=== PATIENT | male | born 1950 | race Caucasian/White ===

== ENCOUNTER 2016-06-09 21:08 | Emergency (ER) | payer OTHER ==
[2016-06-09 21:19] VITALS: TEMP 98.2
[2016-06-09] MEDS ORDERED: ONDANSETRON 4 MG/2 ML VIAL IVP ONE (21:44)
[2016-06-09] MEDS ORDERED: HYDROmorphONE/DILAUDID 1 MG/ML SYR IVP ONE ×2 (21:44→22:43)
[2016-06-09] MEDS ORDERED: NS 1,000 ML IV ONE (21:44)
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
[2016-06-09 22:14] LABS: ANION GAP 10 mEq/L (8-16); CALCIUM 9.6 mg/dL (8.5-10.4); CARBON DIOXIDE 23 mEq/l (22-31); CHLORIDE 102 mEq/L (97-110); CREATININE 1.2 mg/dL (0.7-1.3); GLOMERULAR FILTRATION RATE > 60; GLUCOSE 115 mg/dL (70-100); POTASSIUM 3.8 mEq/L (3.5-5.2); SODIUM 135 mEq/L (134-144)
[2016-06-09 22:16] LABS: % IMMATURE GRANULYOCYTES 0.4 % (0.0-1.1); ABSOLUTE IMMATURE GRANULOCYTES 0.03 10^3/uL (0.00-0.10); ADD DIFF? NO; ADD MORPH? NO; ADD SCAN? NO; ATYPICAL LYMPHOCYTE FLAG 10 (0-99); FRAGMENT RBC FLAG 0 (0-99); HEMATOCRIT 45.6 % (40.0-51.0); HEMOGLOBIN 16.5 g/dL (13.7-17.5); LEFT SHIFT FLG 0 (0-99); LIPEMIA HEMOLYSIS FLAG 90 (0-99); MEAN CELL HEMOGLOBIN 33.1 pg (27.9-34.1); MEAN CELL HEMOGLOBIN CONCENTR. 36.2 g/dL (32.4-36.7); MEAN CELL VOLUME 91.6 fL (81.5-99.8); MEAN PLATELET VOLUME 9.7 fL (8.7-11.7); PLATELET CLUMPS FLAG 0 (0-99); PLATELET COUNT 262 10^3/uL (150-400); RED BLOOD CELL COUNT 4.98 10^6/uL (4.40-6.38); RED CELL DISTRIBUTION WIDTH 12.6 % (11.5-15.2)
[2016-06-09] MEDS ORDERED: KETOROLAC 15 MG/1 ML SDV IVP ONE (22:16)
[2016-06-09] MEDS ORDERED: OXYCODONE/APAP 5/325MG PREPACK#4 BTL TAKEHOME ONE (22:49)
[2016-06-09 23:15] VITALS: BP 136/88; PULSE 83; RESP 16; O2SAT 92
== END 2016-06-09 23:12 | disposition home or self-care (01) ==
DX: N20.0 Calculus of kidney (principal)
CPT/HCPCS: 74176; 96361; 96374; 96375; 99285; J1170; J1885; J2405

== ENCOUNTER 2016-06-13 16:53 | Observation (INO) | payer OTHER ==
[2016-06-13] MEDS ORDERED: ACETAMINOPHEN 500 MG TAB ONE (18:06)
--- NOTE | 2016-06-13 18:20 | EDPHY ---
H & P Stated Complaint: Had kidney stone;here last Sun;now has fever and doesn't feel good Source: Patient Exam Limitations: No limitations - Personal History Current Tetanus Diphtheria and Acellular Pertussis (TDAP): Yes - Medical/Surgical History Hx Asthma: No Hx Chronic Respiratory Disease: No Hx Diabetes: No Hx Cardiac Disease: No Hx Renal Disease: No Hx Cirrhosis: No Hx Alcoholism: No Hx HIV/AIDS: No Hx Splenectomy or Spleen Trauma: No Other PMH: bilat wrist repair. kidney stones (recent). gout - Social History Smoking Status: Never smoked Time Seen by Provider: 06/13/16 18:03 HPI/ROS: CHIEF COMPLAINT: Fever, body aches HISTORY OF PRESENT ILLNESS: 66-year-old male presents emergency department complaining of a 3 day history of fevers, body aches, decreased appetite. Patient reports nausea and 1 episode of emesis today. Patient was seen in the emergency department 5 days ago for left flank pain. He had a CT scan that showed a left ureteral calculi as well as a left renal calculi nonobstructing. Patient was discharged home with pain medication, he strained his urine and took the stone to his primary care doctor on Friday, this stone is currently in the lab being analyzed. Patient states on Friday he developed the same exact pain in his abdomen and flank that he had with the previous stone. He assumed this was the other stone that dropped from his kidney. This pain lasted overnight and has resolved. The patient denies abdominal pain, flank pain. He denies urinary frequency, urgency or dysuria. He denies chest pain or shortness of breath, no cough, no sore throat, no ear pain. REVIEW OF SYSTEMS: A comprehensive 10 point review of systems is otherwise negative aside from elements mentioned in the history of present illness. (Aundrea Guardado) - Physical Exam Exam: Physical Exam Gen: Alert and Oriented, NAD HEENT: PERRL, dry mucous membranes NECK: no meningismus CV: Tachycardic rate and regular rhythm PULM: CTAB, no wheezes ABDOMEN: soft, non tender to palpation, BS present BACK: No CVA tenderness NEURO: Neurologically grossly intact EXTREMITIES: normal appearing SKIN: no rash or break in skin on exposed skin PSYCH: answers questions appropriately. (Aundrea Guardado) Constitutional: Initial Vital Signs Temperature (C) 37.3 C 06/13/16 17:00 Heart Rate 119 H 06/13/16 17:00 Respiratory Rate 18 06/13/16 17:00 Blood Pressure 123/86 H 06/13/16 17:00 O2 Sat (%) 93 06/13/16 17:00 O2 Delivery Mode Room Air Allergies/Adverse Reactions: No Known Allergies Allergy (Verified 06/13/16 17:10) Home Medications: Medication Instructions Recorded Allopurinol [Allopurinol 300 MG 300 mg PO DAILY 06/13/16 (RX)] levOFLOXACIN [levAQUIN (*)] 750 mg PO DAILY #14 tab 06/14/16 Medical Decision Making - Diagnostics Imaging: Discussed imaging studies w/ architectural design lecturer Radiologist ED Course/Re-evaluation: IV established, CBC, chemistry panel, urinalysis ordered. Patient is given 1 L normal saline and Tylenol orally. Patient meets criteria for sepsis. Urinalysis shows 50-182 WBCs. Patient's room air oxygen saturations are 90%. His lungs are clear to auscultation. Chest x-ray has been ordered. He does not smoke cigarettes and has no history of lung disease. I have also ordered a CT abdomen pelvis without contrast to evaluate for a stone. 7pm-patient's sodium is noted to be 125, his creatinine is 1.6. WBC is elevated at 13,000, patient does not meet criteria for severe sepsis. Lactate is 1.2. Another L of normal saline has been ordered. 1 g of Rocephin ordered. Patient will be admitted to the hospitalist for his elevated creatinine and pyelonephritis. (Aundrea Guardado) I did not see this patient while he was in the emergency department. However his care was discussed with the nurse practitioner while the patient was in the department. I agree with treatment plan and management (Jose Vargas) - Data Points Laboratory Results: Laboratory Results 06/13/16 18:29 06/13/16 18:29 Microbiology Results: MICROBIOLOGY 06/13/16 18:29 Urine,Clean Catch Urine Culture - Preliminary Two [place] Types 06/13/16 18:29 Blood Blood Culture - Preliminary Medications Given: Discontinued Medications Acetaminophen (Tylenol) 1,000 mg PO EDNOW ONE Stop: 06/13/16 18:32 Last Admin: 06/13/16 18:39 Dose: 1,000 mg Allopurinol (Allopurinol) 300 mg PO DAILY MAUREEN Stop: 12/11/16 08:59 Last Admin: 06/14/16 08:53 Dose: 300 mg Sodium Chloride (Ns) 1,000 mls @ 0 mls/hr IV ONCE ONE PRN Reason: Wide Open Stop: 06/13/16 18:31 Last Admin: 06/13/16 18:38 Dose: 1,000 mls Ceftriaxone Sodium/Dextrose (Rocephin 1 Gm (Premix)) 50 mls @ 100 mls/hr IV EDNOW ONE PRN Reason: Protocol Stop: 06/13/16 19:14 Last Admin: 06/13/16 20:04 Dose: 50 mls Sodium Chloride (Ns) 1,000 mls @ 0 mls/hr IV ONCE ONE PRN Reason: Wide Open Stop: 06/13/16 20:30 Last Admin: 06/13/16 20:00 Dose: 1,000 mls Ceftriaxone Sodium/Dextrose (Rocephin 1 Gm (Premix)) 50 mls @ 100 mls/hr IV DAILY MAUREEN PRN Reason: Protocol Stop: 07/14/16 08:59 Last Admin: 06/14/16 08:53 Dose: 50 mls Sodium Chloride (Ns) 1,000 mls @ 150 mls/hr IV CONT MAUREEN Stop: 12/10/16 21:29 Last Admin: 06/14/16 05:54 Dose: 1,000 mls Departure - Departure Disposition: [facility] Clinical Impression: Pyelonephritis Condition: Fair
[2016-06-13 18:22] LABS: COLOR AMBER; LEUKOCYTE ESTERASE,URINE 3+ (NEGATIVE); NITRITE,URINE NEGATIVE (NEGATIVE)
[2016-06-13] MEDS ORDERED: NS 1,000 ML IV ONE ×2 (18:30→20:29)
[2016-06-13] MEDS ORDERED: ACETAMINOPHEN 500 MG TAB PO ONE (18:31)
[2016-06-13 18:32] LABS: BACTERIA TRACE /hpf (NONE SEEN); MUCUS 2+ /lpf (NONE-1+); RBC,URINE 15-25 /hpf (0-3); WBC,URINE 50-182 /hpf (0-3)
[2016-06-13 18:43] LABS: ADD MORPH? NO; ATYPICAL LYMPHOCYTE FLAG 0 (0-99); FRAGMENT RBC FLAG 0 (0-99); HEMATOCRIT 48.8 % (40.0-51.0); LIPEMIA HEMOLYSIS FLAG 90 (0-99); MEAN CELL HEMOGLOBIN 32.6 pg (27.9-34.1); MEAN CELL HEMOGLOBIN CONCENTR. 36.9 g/dL (32.4-36.7); MEAN CELL VOLUME 88.4 fL (81.5-99.8); MEAN PLATELET VOLUME 9.6 fL (8.7-11.7); PLATELET CLUMPS FLAG 0 (0-99); PLATELET COUNT 181 10^3/uL (150-400); RED BLOOD CELL COUNT 5.52 10^6/uL (4.40-6.38); RED CELL DISTRIBUTION WIDTH 12.1 % (11.5-15.2)
[2016-06-13 18:45] LABS: ADD DIFF? YES; LEFT SHIFT FLG 100 (0-99)
[2016-06-13 18:46] LABS: ADD SCAN? NO
[2016-06-13 19:02] LABS: ANION GAP 12 mEq/L (8-16); CALCIUM 9.1 mg/dL (8.5-10.4); CARBON DIOXIDE 20 mEq/l (22-31); CHLORIDE 93 mEq/L (97-110); CREATININE 1.6 mg/dL (0.7-1.3); GLOMERULAR FILTRATION RATE 44; GLUCOSE 123 mg/dL (70-100); POTASSIUM 3.9 mEq/L (3.5-5.2); SODIUM 125 mEq/L (134-144)
[2016-06-13 19:09] LABS: PLATELET ESTIMATE ADEQUATE (ADEQ)
[2016-06-13 20:06] LABS: INR 1.15 (0.83-1.16); PROTIME(PATIENT) 14.6 SEC (12.0-15.0)
[2016-06-13 20:07] LABS: APTT 30.4 SEC (23.0-38.0)
[2016-06-13 20:10] LABS: BILIRUBIN,TOTAL 1.6 mg/dL (0.1-1.4)
[2016-06-13 21:06] VITALS: O2SAT 92
[2016-06-13] MEDS ORDERED: ONDANSETRON 4 MG/2 ML VIAL IVP PRN (21:26)
[2016-06-13] MEDS ORDERED: ONDANSETRON DISINTEGRATING 4 MG TAB PO PRN (21:26)
[2016-06-13] MEDS ORDERED: ACETAMINOPHEN 325 MG TAB PO PRN (21:26)
--- NOTE | 2016-06-13 22:13 | GHP ---
[f rep st] HISTORY AND PHYSICAL DATE OF ADMISSION: 06/13/2016 CHIEF COMPLAINT: Fever. HISTORY OF PRESENT ILLNESS: This is a 66-year-old male who was diagnosed several days ago with a ki dney stone left ureter with some mild obstructive uropathy. This was 4 x 3 mm. He was sent [facility] pain medicine and he believes he passed a stone a couple days ago. However, he developed fever a round that time. He has had some nausea and decreased p.o. intake. Mild diarrhea. No dysuria. No flank pain. REVIEW OF SYSTEMS: A 10-point review of systems was obtained and this was negative. PAST MEDICAL HISTORY: Gout, hypertension. MEDICATIONS: Allopurinol, Diovan. SOCIAL HISTORY: No smoking. Occasional alcohol. 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 FAMILY HISTORY: No family history of kidney stones. PHYSICAL EXAM: VITAL SIGNS: Afebrile, blood pressure is 119/68, heart rate 77 but was initially 11 9, oxygen saturation is 98% on room air. GENERAL: The patient is well developed in no apparent dis tress. HEENT: Nonicteric sclerae. Extraocular movements intact. Moist mucous membranes. NECK: Supple. No thyromegaly. LUNGS: Good effort. Clear to auscultation bilaterally. CARDIOVASCULAR: Regular rate and rhythm. No murmurs, gallops. ABDOMEN: Positive bowel sounds. Soft, nontender, nondistended. No hepatosplenomegaly. No CVA tenderness. EXTREMITIES: No clubbing, cyanosis or ed willem. SKIN: Without rash, dry, intact. NEUROLOGIC: Alert and oriented x3. Moving all 4 extremiti es equally. PSYCH: Normal mood and affect. LABS: White count is elevated at 13, hemoglobin 18. Sodium low at 125, potassium 3.9, BUN is 25, c reatinine 1.6. Lactic acid is normal. ASSESSMENT: This is a 66-year-old male presenting with urinary tract infection after kidney stone p assing. PLAN: 1. Urinary tract infection. We will continue ceftriaxone and await cultures. Patient is already f eeling better. 2. Early sepsis. Lactate is normal. We will continue IV fluids. 3. A recent kidney stone. Repeat CT scan does not show any obstructive uropathy. 4. Hyponatremia probably related to dehydration. We will give IV fluids. 5. Admission. Patient will be admitted under observation status. Case discussed with ER physician . Old records reviewed and summarized in HPI. /[id number]/MODL
[2016-06-13] MEDS: NS 1,000 ML IV SCH (22:53)
[2016-06-14 00:45] VITALS: RESP 18
[2016-06-14 05:25] LABS: % IMMATURE GRANULYOCYTES 0.6 % (0.0-1.1); ABSOLUTE IMMATURE GRANULOCYTES 0.06 10^3/uL (0.00-0.10); ADD DIFF? NO; ADD MORPH? NO; ADD SCAN? YES; ATYPICAL LYMPHOCYTE FLAG 0 (0-99); FRAGMENT RBC FLAG 0 (0-99); HEMATOCRIT 45.4 % (40.0-51.0); HEMOGLOBIN 16.1 g/dL (13.7-17.5); LIPEMIA HEMOLYSIS FLAG 90 (0-99); MEAN CELL HEMOGLOBIN 32.3 pg (27.9-34.1); MEAN CELL HEMOGLOBIN CONCENTR. 35.5 g/dL (32.4-36.7); MEAN CELL VOLUME 91.2 fL (81.5-99.8); MEAN PLATELET VOLUME 9.7 fL (8.7-11.7); PLATELET CLUMPS FLAG 0 (0-99); PLATELET COUNT 157 10^3/uL (150-400); RED BLOOD CELL COUNT 4.98 10^6/uL (4.40-6.38); RED CELL DISTRIBUTION WIDTH 12.4 % (11.5-15.2)
[2016-06-14 05:27] LABS: LEFT SHIFT FLG 200 (0-99)
[2016-06-14] MEDS: NS 1,000 ML IV SCH (05:54)
[2016-06-14 06:09] LABS: ANION GAP 12 mEq/L (8-16); CALCIUM 8.5 mg/dL (8.5-10.4); CARBON DIOXIDE 24 mEq/l (22-31); CHLORIDE 101 mEq/L (97-110); CREATININE 1.1 mg/dL (0.7-1.3); GLOMERULAR FILTRATION RATE > 60; GLUCOSE 109 mg/dL (70-100); POTASSIUM 4.3 mEq/L (3.5-5.2); SODIUM 137 mEq/L (134-144)
[2016-06-14 06:40] LABS: SCAN NEGATIVE
[2016-06-14 08:42] VITALS: BP 113/81; PULSE 75; TEMP 98
[2016-06-14] MEDS ORDERED: ALLOPURINOL 300 MG TAB PO SCH (09:00)
--- NOTE | 2016-06-14 12:42 | GDS ---
[f rep st] DISCHARGE SUMMARY DIAGNOSES: 1. Acute urinary tract infection. 2. Recent nephrolithiasis. 3. Hyponatremia. 4. Acute kidney injury. HOSPITAL COURSE: This is a 66-year-old man who had a recent left-sided obstructive stone, who prese nted with fever and abdominal pain. He feels as though he passed the stone a few days ago. Imaging here shows that the obstructive stone has been passed; however, he does have 2 small nonobstructive stones. Urinalysis shows pyuria. He was treated with IV Rocephin for a urinary tract infection with significant improvement in his sy mptoms. He feels much better the day after admission. He has also been adequately hydrated. Initi al creatinine was 1.6, down to 1.1 the following day. Hyponatremia has also corrected with discharg e sodium of 137. Urine culture is pending. I put him on empiric Levaquin. I gave him 7 days with the instructions of taking it an additional 7 days if his symptoms return as he does continue to have retained stones. He will follow up with Dr Chandu Mclean, his PCP, as well as Dr. Hall of Urology for ongoing stone management. Apparently, stone s were collected and have been sent to the lab at [facility] for analysis. /[id number]/MODL
--- NOTE | 2016-06-16 18:42 | HOSPPROG ---
Hospitalist Progress Note Assessment/Plan: Called with positive blood cultures from 06/13 - pseudomonas. D/w infectious disease. called patient. He feels great. He has 14 days of Levaquin which I instructed him to complete. He will follow up with Vinay for repeat blood cultures. He also has appointment with urology this week. Will follow up on sensitivities tomorrow. Objective: Vital Signs Temp Pulse Resp BP Pulse Ox 36.7 C 75 18 113/81 H 92 06/14/16 08:00 06/14/16 08:00 06/14/16 08:00 06/14/16 08:00 06/14/16 08:00 Laboratory Results 06/14/16 04:19 06/14/16 04:19 PT 14.6 SEC (12.0-15.0) 06/13/16 18:29 INR 1.15 (0.83-1.16) 06/13/16 18:29 ICD10 Worksheet Patient Problems: Problems Problem Status Onset Pyelonephritis Acute
== END 2016-06-14 09:56 | disposition home or self-care (01) ==
LOC: F3E 20:42
PROVIDERS: ADMIT Internal Medicine; ATTEND Student in an Organized Health Care Education/Training Program
DX: N39.0 Urinary tract infection, site not specified (principal); B96.5 Pseudomonas (aeruginosa) (mallei) (pseudomallei) as the cause of diseases classified elsewhere; R19.7 Diarrhea, unspecified; E87.1 Hypo-osmolality and hyponatremia; N17.9 Acute kidney failure, unspecified; I10 Essential (primary) hypertension
CPT/HCPCS: 74176; 96361; 96365; 99285; G0378; J0696

== ENCOUNTER 2016-08-16 18:02 | Emergency (ER) | payer OTHER ==
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
[2016-08-16 18:39] LABS: % IMMATURE GRANULYOCYTES 0.3 % (0.0-1.1); ABSOLUTE IMMATURE GRANULOCYTES 0.02 10^3/uL (0.00-0.10); ADD DIFF? NO; ADD MORPH? NO; ADD SCAN? NO; ATYPICAL LYMPHOCYTE FLAG 10 (0-99); FRAGMENT RBC FLAG 0 (0-99); HEMATOCRIT 46.3 % (40.0-51.0); HEMOGLOBIN 16.8 g/dL (13.7-17.5); LEFT SHIFT FLG 0 (0-99); LIPEMIA HEMOLYSIS FLAG 90 (0-99); MEAN CELL HEMOGLOBIN CONCENTR. 36.3 g/dL (32.4-36.7); MEAN CELL VOLUME 93.7 fL (81.5-99.8); MEAN PLATELET VOLUME 9.8 fL (8.7-11.7); PLATELET CLUMPS FLAG 0 (0-99); PLATELET COUNT 262 10^3/uL (150-400); RED BLOOD CELL COUNT 4.94 10^6/uL (4.40-6.38); RED CELL DISTRIBUTION WIDTH 11.9 % (11.5-15.2)
[2016-08-16 18:48] LABS: INR 0.99 (0.83-1.16)
[2016-08-16 18:55] LABS: ANION GAP 15 mEq/L (8-16); CARBON DIOXIDE 20 mEq/l (22-31); CHLORIDE 98 mEq/L (97-110); CREATININE 1.2 mg/dL (0.7-1.3); GLOMERULAR FILTRATION RATE > 60; GLUCOSE 122 mg/dL (70-100); SODIUM 133 mEq/L (134-144)
[2016-08-16 19:58] VITALS: BP 149/88; PULSE 88; RESP 14; TEMP 99; O2SAT 92
== END 2016-08-16 19:57 | disposition home or self-care (01) ==
DX: S50.11XA Contusion of right forearm, initial encounter (principal); I10 Essential (primary) hypertension; X58.XXXA Exposure to other specified factors, initial encounter
CPT/HCPCS: 73090; 93971; 99285; L3908

== ENCOUNTER 2017-04-29 05:51 | Day surgery (SDC) | payer OTHER ==
--- NOTE | 2017-04-25 00:41 | GHP ---
[f rep st] HISTORY AND PHYSICAL COMPLAINT: Right shoulder pain and right wrist pain. HISTORY OF PRESENT ILLNESS: The patient is a 67-year-old male who has developed pain into the right shoulder over time and use to the point that he has difficulty being able to lift his arms overhead. 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 He has palpable screws and would like these removed. ALLERGIES: Patient has no prior drug allergies. BODY AFTER ALLERGIES: CURRENT MEDICATIONS: Include allopurinol. PAST MEDICAL HISTORY: Prior medical problems include high blood pressure and gout. PAST SURGICAL HISTORY: Prior surgeries include bilateral wrist surgeries. HABITS: He has never been a smoker, and he is not a drinker. PHYSICAL EXAM: HEENT: Pupils equal, round, reactive to light. CHEST: Clear to auscultation. HEART: Regular rate and rhythm. ABDOMEN: Soft and nontender. RIGHT UPPER EXTREMITY: Good range of motion with 5/5 strength in external rotation biceps and triceps but slight decrease in strength to internal rotation, supraspinatus, and Speed testing. MRI has revealed near-full -thickness rotator cuff tear with anterior acromial curve and hook, AC osteoarthritis, and biceps tendinopathy. Exam of the right wrist reveals tenderness associated with the hardware overlying the anterior scar with x-rays revealing well-placed hardware. ASSESSMENT: He would like surgery in order to resolve each issue. PLAN: The plan is to take him to the operating room where he will undergo a right wrist removal of hardware as well as a right shoulder rotator cuff repair with subacromial decompression, AC resection, and probable biceps tenodesis. /[id number]/MODL MTDD
[2017-04-29] MEDS ORDERED: ACETAMINOPHEN 500 MG TAB PO ONE (06:00)
[2017-04-29] MEDS ORDERED: ceFAZolin 2 GM/SWFI 2 GM/20 ML SYR IVP ONE (06:00)
[2017-04-29] MEDS ORDERED: LIDOCAINE 1% 2 ML INJ ID PRN (06:18)
[2017-04-29] MEDS ORDERED: LR 1,000 ML IV ONE (06:18)
[2017-04-29] MEDS ORDERED: LIDOCAINE 1% 2 ML INJ ONE (06:26)
[2017-04-29] MEDS ORDERED: BUPIVACAINE/EPI 0.5% 30 ML SDV ONE (06:53)
--- NOTE | 2017-04-29 07:03 | PDANEPAE ---
ANE Past Medical History - Cardiovascular History Hx Hypertension: Yes Hx Arrhythmias: No Hx Chest Pain: No Hx Coronary Artery / Peripheral Vascular Disease: No Hx CHF / Valvular Disease: No Hx Palpitations: No Cardiovascular History Comment: Thoracic aortic aneurysm 4.4 cm - Pulmonary History Hx COPD: No Hx Asthma/Reactive Airway Disease: No Hx Recent Upper Respiratory Infection: No Hx Oxygen in Use at Home: No Hx Sleep Apnea: No Sleep Apnea Screening Result - Last Documented: Positive - Neurologic History Hx Cerebrovascular Accident: No Hx Seizures: No Hx Dementia: No - Endocrine History Hx Diabetes: No Hypothyroid: No Hyperthyroid: No Obesity: mild - Renal History Hx Renal Disorders: No Renal History Comment: PREV KIDNEY STONE PASSED IT HIMSELF - Liver History Hx Hepatic Disorders: No - Neurological & Psychiatric Hx Hx Neurological and Psychiatric Disorders: No - Cancer History Hx Cancer: No - Congenital Disorder History Hx Congenital Disorders: No - GI History Hx Gastrointestinal Disorders: Yes Gastrointestinal History Comment: PREV DIVERTICULOSIS - Other Health History Other Health History: GOUT - Chronic Pain History Chronic Pain: Yes (RT SHLDR AND WRIST) - Surgical History Prior Surgeries: RAISSA WRIST ORIF 2005. LT HAND TRIGGER FINGER RELEASE. LT ANKLE. LACERATION TOP OF EAR ANE Review of Systems Review of Systems: - Exercise capacity METS (RN): 5 METS ANE Patient History - Allergies Allergies/Adverse Reactions: No Known Allergies Allergy (Verified 08/16/16 18:03) - Home Medications Home Medications: Allopurinol [Allopurinol 300 MG (RX)] 300 mg PO DAILY 06/13/16 [Last Taken 06/10] Valsartan [Diovan (*)] 40 mg PO DAILY 08/16/16 [Last Taken Unknown] Ibuprofen HS 04/24/17 [Last Taken Unknown] - NPO status NPO Since - Liquids (Date): 04/29/17 NPO Since - Liquids (Time): 05:45 NPO Since - Solids (Date): 04/28/17 NPO Since - Solids (Time): 18:00 - Smoking Hx Smoking Status: Never smoked ANE Labs/Vital Signs - Vital Signs Blood Pressure: 153/97 Heart Rate: 66 Respiratory Rate: 18 O2 Sat (%): 95 Height: 177.8 cm Weight: 92.986 kg ANE Physical Exam - Airway Neck exam: FROM Mallampati Score: Class 1 Mouth exam: normal dental/mouth exam - Pulmonary Pulmonary: no respiratory distress - Cardiovascular Cardiovascular: regular rate and rhythym - ASA Status ASA Status: II ANE Anesthesia Plan Anesthesia Plan: general endotracheal anesthesia Regional Anesthesia: interscalene BP NB
[2017-04-29] MEDS ORDERED: PROPOFOL 200 MG/20 ML VIAL ONE ×2 (07:06→09:12)
[2017-04-29] MEDS ORDERED: fentaNYL 250 MCG/5 ML INJ ONE (07:07)
--- NOTE | 2017-04-29 07:13 | PDHPUP ---
History & Physical Update H&P update statement: This history and physical update is based on an assessment of the patient which was completed after admission or registration (within 24 hours), but prior to the surgery/procedure. H&P update: H&P reviewed & patient examined, no change in patient's condition since H&P completed
[2017-04-29] MEDS ORDERED: MIDAZOLAM 2 MG/2 ML VIAL ONE (07:14)
[2017-04-29] MEDS ORDERED: PHENYLEPHRINE HCL 100 MCG/ML SYR ONE (08:10)
[2017-04-29] MEDS ORDERED: ONDANSETRON 4 MG/2 ML VIAL ONE (08:10)
[2017-04-29] MEDS ORDERED: DEXAMETHASONE 4 MG/ML VIAL ONE (08:10)
[2017-04-29] MEDS ORDERED: ROCURONIUM 100 MG/10 ML VIAL ONE (08:10)
[2017-04-29] MEDS ORDERED: THROMBIN (BOVINE) 5,000 UNIT VIAL TP ONE (08:22)
[2017-04-29] MEDS ORDERED: CALCIUM CHLORIDE 1 GM/10 ML INJ ONE (08:22)
[2017-04-29] MEDS ORDERED: MIDAZOLAM 2 MG/2 ML VIAL IVP ONE (08:57)
[2017-04-29] MEDS ORDERED: PROMETHAZINE HCL 25 MG/ML INJ IVP PRN (08:58)
[2017-04-29] MEDS ORDERED: NALOXONE HCL 0.4 MG/ML INJ IVP PRN (08:58)
[2017-04-29] MEDS ORDERED: LR 500 ML IV PRN (08:58)
[2017-04-29] MEDS ORDERED: LABETALOL HCL 5 MG/ML 20 ML MDV IVP PRN (08:58)
[2017-04-29] MEDS ORDERED: fentaNYL 100 MCG/2 ML INJ IVP PRN (08:58)
[2017-04-29] MEDS ORDERED: HYDROCODONE/APAP 5/325 TAB PO PRN ×2 (08:58→09:58)
[2017-04-29] MEDS ORDERED: HYDROGEN PEROXIDE 236 ML BOTTLE TP ONE (09:01)
[2017-04-29] MEDS ORDERED: NEOSTIGMINE METHYLSULFATE 3 MG/3 ML SYR ONE (09:47)
[2017-04-29] MEDS ORDERED: GLYCOPYRROLATE 0.2 MG/1 ML VIAL ONE ×2 (09:47)
[2017-04-29] MEDS ORDERED: ONDANSETRON 4 MG/2 ML VIAL IVP PRN (09:58)
[2017-04-29] MEDS ORDERED: ACETAMINOPHEN 325 MG TAB PO PRN (09:58)
--- NOTE | 2017-04-29 09:58 | POSTOPPROG ---
Post Op Note Date of Operation: 04/29/17 Surgeon: Stephania José Heavy Equipment Rental Associate: [employer] Anesthesia: GET(General Endotracheal), Other (Specify) Pre-op Diagnosis: r shoulder impingement with rcr and s/p r wrist orif Procedure: r shoulder scope with RCR/SAD/AC resction and debridement with R wrist SANJANA Inf/Abcess present in the surg proc area at time of surgery?: No Depth: Deep Incisional (Fascial) EBL: 100-500
--- NOTE | 2017-04-29 10:33 | POSTANESTH ---
Post Anesthetic Evaluation Cardiovascular Status: Normal, Stable Respiratory Status: Normal, Stable Level of Consciousness/Mental Status: Can Participate in Eval Pain Control: Adequate, Prn Tx Ordered Nausea/Vomiting Control: Adequate, Prn Tx Ordered Complications Possibly Related to Anesthesia: None Noted
[2017-04-29 10:34] VITALS: PULSE 75
--- NOTE | 2017-04-29 11:15 | GOP ---
[f rep st] OPERATIVE REPORT DATE OF OPERATION: 04/29/2017 SURGEON: Stephania José MD CABLE ASSEMBLER: Ronnie Fontanez, [facility], LSA, whose presence was medically necessary. ANESTHESIA: By endotracheal intubation plus scalene block per surgeon's request. PREOPERATIVE DIAGNOSIS: Right shoulder impingement syndrome with rotator cuff tear and labral tear a s well as status post right wrist open reduction and internal fixation. POSTOPERATIVE DIAGNOSIS: PROCEDURE PERFORMED: Right shoulder arthroscopy with rotator cuff repair x1, subacromial decompressi on, arthroscopic acromioclavicular resection, debridement of rotator cuff, labrum and biceps anchor a s well as removal of hardware from the right wrist with fluoroscopy. FINDINGS: DESCRIPTION OF PROCEDURE: Patient brought to the operating room after the right shoulder and right w rist were identified as the correct operative site by the patient, nurse and physician. Once in the operating room he was given a scalene block on the right side. He was then placed under general anes thesia using endotracheal intubation. Once asleep, he was placed in a beach chair position with the entire right upper extremity sterilely prepped and draped in the usual fashion using GSI solution. O nce prepped and draped, incision was made on the posterolateral corner of the acromion with the camer a introduced without difficulty. Inspection of the joint revealed no loose bodies in the glenohumera l joint but there was fraying and tearing of the superior and anterior portion of the labrum as well as fraying of the biceps anchor. He was noted to have a significant amount of fraying noted to the r otator cuff. Therefore, using in to out technique an anterior portal was made superolateral to the c oracoid process with 6 x 75 mm threaded cannula placed through the anterior portal. A 3.5 mm smooth shaver was then used to debride both the tearing associated with the superior and anterior portions o f the labrum, the biceps anchor and the rotator cuff. Once completed, all instruments were removed f rom the shoulder joint and reintroduced in the subacromial space using the same portal sites. A 3rd incision was made 3 cm lateral to the acromial process in line with the posterior cortex of the clavi harsha. With the camera switched to the lateral portal and alternating using arthroscopic Bovie tip and a shaver was used to remove the abundant amount of soft tissue from the undersurface of the acromion as well as the abundant thick bursa within the subacromial space. He was noted to have a tear of th e rotator cuff of the greater tuberosity approximately 1 square cm. He was also noted to have a shor t, sharp inferior spur off the acromion. This was debrided using acromionizer bur brought through th e posterior portal until achieving a flat ceiling. Attention was turned to the distal clavicle where he was noted to have a short, sharp inferior spur and this was also removed using combination of sha michelle and bur. He was also noted to have calcified disk within the AC joint and this was also removed. Once the subacromial decompression had been performed a spinal needle was placed in the posterior p ortion of the AC joint and alternating using arthroscopic shaver and a bur was used to remove distal portion of the clavicle until achieving adequate space at the AC joint. Camera was introduced into t he AC joint and noted to have ample amount of room as evidence by a probe brought in from the lateral portal. Once completed, attention was turned back to the rotator cuff where the camera switched to the posterior portal. The arm was elevated in order to gain better access onto the rotator cuff. Th e greater tuberosity footprint was debrided using combination of shaver and bur until achieving some eburnated bone. A #2 FiberWire was woven into the anterior and posterior portions of the rotator cuf f, it was attached onto a 4.5 mm [place] anchor that was driven into the bone drawing the rotator cuf f onto the eburnated bone. Once completed, all instruments were removed from the subacromial space w ith 30 cc of Marcaine infused in the subacromial space. The 4 portal sites closed using 3-0 nylon louis ture in a [id number] type stitch with plasma gel placed within the shoulder. Attention was then turned to the wrist. The arm was taken out of its shoulder ramos and was placed on a Bass stand. Using the old incision on the volar portion of the wrist sharp dissection was carried down through th e skin and subcutaneous layers. Gentle blunt dissection was carried down ulnar to the palmaris longu s with further blunt dissection, carried down between the flexor tendons gaining access onto the vola r portion of the wrist. There was abundant amount of bony and soft tissue overgrowth around the plat e. The screws were able to be removed at the distal end as well as an inner fragmentary screw and th e screws of the proximal portion of the plate. The plate was able to be removed, position was checke d under fluoroscopy, noted to have no hardware left within the wrist. The wound was then thoroughly irrigated with antibiotic solution and was closed in layer to include 3-0 Vicryl suture and a vertica l interrupted stitch for the subcutaneous layers and a 4-0 Monocryl in a running subcuticular stitch for the skin. The wound was dressed with Steri-Strips, Xeroform, 4 x 4's, wrapped in Webril and an A ce wrap. The shoulder wound was then dressed with Xeroform, 4 x 4, and Tegaderm. He was completely undraped in the operating room, had a shoulder immobilizer placed on the right upper extremity. He w as then woken up, extubated, transferred onto a bed, and sent to recovery room in good condition. TOURNIQUET TIME: 32 minutes. INDICATION FOR SURGERY: This is a 67-year-old male with a several-month history of right shoulder pa in worsening with use and with time. He has recently developed weakness as well as pain into the charlene ulder. He also notes that he has pain into his right wrist after remote a history of a severe wrist fracture. He would like the hardware removed to see if this alleviates some of his symptomatology. MRI of the shoulder revealed a rotator cuff tear as well as significant anterior acromial curve, and hook and labral tearing. /[id number]/MODL
[2017-04-29 11:16] VITALS: RESP 16
[2017-04-29 12:31] VITALS: BP 121/85; TEMP 97.3; O2SAT 92
== END 2017-04-29 11:59 | disposition home or self-care (01) ==
LOC: FSGY 05:51
PROVIDERS: ATTEND Orthopaedic Surgery
PROC: 0LQ14ZZ Repair Right Shoulder Tendon, Percutaneous Endoscopic Approach (ICD-10-PCS; principal; 2017-04-29 07:15)
PROC: 0MB14ZZ Excision of Right Shoulder Bursa and Ligament, Percutaneous Endoscopic Approach (ICD-10-PCS; principal; 2017-04-29 07:15)
PROC: 0PPK04Z Removal of Internal Fixation Device from Right Ulna, Open Approach (ICD-10-PCS; principal; 2017-04-29 07:15)
DX: M25.811 Other specified joint disorders, right shoulder (principal); M75.101 Unspecified rotator cuff tear or rupture of right shoulder, not specified as traumatic; Z47.2 Encounter for removal of internal fixation device
CPT/HCPCS: C1713; J0171; J0690; J1100; J2250; J2370; J2405; J2704; J2710; J3010